=== PATIENT | female | born 2000 | race African-American/Black ===

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

== ENCOUNTER 2019-01-25 10:50 | Emergency (ER) | payer SELFPAY ==
[2019-01-25 11:14] VITALS: BP 108/61
== END 2019-01-25 13:48 | disposition left against medical advice (07) ==
LOC: ER 10:50
DX: Z53.21 Procedure and treatment not carried out due to patient leaving prior to being seen by health care provider (principal); R10.2 Pelvic and perineal pain

== ENCOUNTER 2019-03-11 09:25 | Emergency (ER) | payer SELFPAY ==
--- NOTE | 2019-03-11 10:15 | ER Document Report ---
HPI - HPI Patient complains to provider of: vaginal irritation Time Seen by Provider: 03/11/19 10:00 Onset: Last week Onset/Duration: Persistent Severity: Moderate Pain Level: 3 Context: This 18-year-old female presents emergency department with complaints of vaginal irritation and itching for the past week. She reports she thought it was a new soap she used so she quit using the soap. Symptoms still remain. She also reports vaginal discharge white. Reports no pain with void. Reports some pain with intercourse. reports she is sexually active with one partner. They do use condoms. Patient does report history of STD chlamydia patient. Denies fever vomiting diarrhea. Denies abdominal pain. - REPRODUCTIVE Reproductive: DENIES: : Past Medical History - General Information source: Patient Last Menstrual Period: february - Social History Smoking Status: Unknown if Ever Smoked Cigarette use (# per day): No Frequency of alcohol use: None Drug Abuse: None Family History: Reviewed & Not Pertinent Patient has suicidal ideation: No Patient has homicidal ideation: No Endocrine Medical History: Reports: Hx Diabetes Mellitus Type 2 Renal/ Medical History: Reports: Other - chlamydia. Denies: Hx Peritoneal Dialysis Musculoskeletal Medical History: Reports Hx Musculoskeletal Trauma Traumatic Medical History: Reports: Hx Fractures - Left third finger left tibia Past Surgical History: Reports: Hx Orthopedic Surgery - Left tibia ankle - Immunizations Immunizations up to date: Yes Hx Diphtheria, Pertussis, Tetanus Vaccination: Yes Vertical Provider Document - CONSTITUTIONAL Agree With Documented VS: Yes Exam Limitations: No Limitations General Appearance: WD/WN, No Apparent Distress - INFECTION CONTROL TRAVEL OUTSIDE OF THE [place] IN LAST 30 DAYS: No - HEENT HEENT: Atraumatic, Normocephalic - NECK Neck: Normal Inspection, Supple. negative: Lymphadenopathy-Left, Lymphadenopathy-Right - RESPIRATORY Respiratory: Breath Sounds Normal, No Respiratory Distress - CARDIOVASCULAR Cardiovascular: Regular Rate, Regular Rhythm - GI/ABDOMEN Gastrointestinal: Abdomen Soft, Abdomen Non-Tender - REPRODUCTIVE Female Genitalia: Normal Inspection. negative: Adnexal Pain-Right, Adnexal Pain-Left - BACK Back: Normal Inspection - MUSCULOSKELETAL/EXTREMETIES Musculoskeletal/Extremeties: MAEW, FROM, Non-Tender - NEURO Level of Consciousness: Awake, Alert, Appropriate Motor/Sensory: No Motor Deficit - DERM Integumentary: Warm, Dry Course - Re-evaluation Re-evalutation: 03/11/19 10:14 This 18-year-old female presents to the emergency department with complaints of vaginal irritation, itching with vaginal discharge white. Denies pain with void. reports pain with sexual intercourse. Reports history of chlamydia and yeast infections. Denies fever vomiting diarrhea. Has not tried any kwip-bpt-tiitual indications. 03/11/19 10:35 Pelvic exam completed. Patient was instructed that no obvious discharge noted no erythema no swelling. Patient reports she would still rather be treated for possible STD and yeast infection. She does not wish to wait for the results. She was instructed she can call this office or the culture nurse for results later on. She was also instructed if they were positive she needs to follow-up with the health department she needs letter partner now. She verbalized understanding to all instructions. 03/11/19 14:06 STDs negative patient was negative for yeast. 03/11/19 14:06 Urine Color YELLOW 03/11/19 10:30 Urine Appearance CLEAR 03/11/19 10:30 Urine pH 6.0 (5.0-9.0) 03/11/19 10:30 Ur Specific [place] 1.021 03/11/19 10:30 Urine Protein NEGATIVE mg/dL (NEGATIVE) 03/11/19 10:30 Urine Glucose (UA) NEGATIVE mg/dL (NEGATIVE) 03/11/19 10:30 Urine Ketones NEGATIVE mg/dL (NEGATIVE) 03/11/19 10:30 Urine Blood NEGATIVE (NEGATIVE) 03/11/19 10:30 Urine Nitrite NEGATIVE (NEGATIVE) 03/11/19 10:30 Ur Leukocyte Esterase NEGATIVE (NEGATIVE) 03/11/19 10:30 Ur Squamous Epith Cells RARE /HPF 03/11/19 10:30 - Vital Signs Vital signs: Temp Pulse Resp BP Pulse Ox 98.3 F 72 16 110/64 98 03/11/19 09:29 03/11/19 09:29 03/11/19 09:29 03/11/19 09:29 03/11/19 09:29 Procedures - Pelvic Exam Pelvic exam Time completed: 10:33 Cultures obtained: Yes Wet prep obtained: Yes Herpes culture obtained: No POC sent to lab: No Foreign body removed: No Bimanual exam performed: Yes Witnessed by: luis Discharge - Discharge Clinical Impression: Vaginal irritation, Exposure to STD Condition: Stable Disposition: HOME, SELF-CARE Instructions: Chlamydia ([facility]), Fluconazole ([facility]), Gonorrhea ([facility]), [facility], Vaginal Yeast Infection ([facility]) Additional Instructions: *You have been evaluated for vaginal discharge, STD exposure, vaginal irritation *You have been treated for gonorrhea chlamydia and a yeast infection with Rocephin and Zithromax and Diflucan You may call [phone] for results later today. If you are unable to call today you may call the culture nurse at [phone] Friday through Friday 8-4 *Follow up with your [facility]NALYST or the health department for recheck within 1 week *Avoid sexual intercourse until follow up *Return to ED for worsening condition, changes, needs
[2019-03-11] MEDS ORDERED: CEFTRIAXONE INJ 250 MG VIAL IM ONE (10:36)
[2019-03-11] MEDS ORDERED: FLUCONAZOLE 100 MG TABLET PO ONE (10:36)
[2019-03-11] MEDS ORDERED: AZITHROMYCIN 250 MG TABLET PO ONE (10:36)
[2019-03-11] MEDS ORDERED: LIDOCAINE 1% INJ-PF (10 MG/ML) 30 ML SDV INJ ONE (10:36)
[2019-03-11 10:45] VITALS: BP 107/59
[2019-03-11 10:49] LABS: T.VAGINALIS (WET MOUNT) NO TRICHOMONAS SEEN; WBCS (WET MOUNT) FEW WBCS SEEN; YEAST (WET MOUNT) NO YEAST SEEN
[2019-03-11 10:53] LABS: APPEARANCE,URINE CLEAR; BILIRUBIN,URINE NEGATIVE (NEGATIVE); COLOR,URINE YELLOW; GLUCOSE, URINE NEGATIVE (NEGATIVE); KETONES,URINE NEGATIVE (NEGATIVE); LEUKOCYTE ESTERASE,URINE NEGATIVE (NEGATIVE); NITRITE,URINE NEGATIVE (NEGATIVE); PROTEIN,URINE NEGATIVE (NEGATIVE); URINE SPECIFIC GRAVITY 1.021; UROBILINOGEN,URINE NEGATIVE mg/dL (<2.0)
[2019-03-11 10:55] LABS: ADD MANUAL MICROSCOPIC YES
[2019-03-11 11:01] LABS: WBC,URINE RARE /HPF
[2019-03-11 12:15] LABS: CHLAM PCR NOT DETECTED (NOT DETECT)
== END 2019-03-11 11:10 | disposition home or self-care (01) ==
LOC: ER 09:25
DX: R10.2 Pelvic and perineal pain (principal); Z20.2 Contact with and (suspected) exposure to infections with a predominantly sexual mode of transmission; N89.8 Other specified noninflammatory disorders of vagina; E11.9 Type 2 diabetes mellitus without complications
CPT/HCPCS: 99283; 96372; 87210; 81025; 81001; 87491; 87591; J3490; J0696

== ENCOUNTER 2019-07-06 06:59 | Emergency (ER) | payer SELFPAY ==
--- NOTE | 2019-07-06 08:48 | ER Document Report ---
ED General - General Chief Complaint: Vaginal Pain Stated Complaint: VAGINAL PAIN Time Seen by Provider: 07/06/19 08:14 Notes: 18 year old female arrives with complaints of occaisional vaginal burning and pain associated with sexual interourse. No lesions or sores on or around her vagina or change in vaginal discharge. No fever or chills. No contraception used. TRAVEL OUTSIDE OF THE [place] IN LAST 30 DAYS: No - Related Data Allergies/Adverse Reactions: No Known Allergies Allergy (Verified 07/06/19 07:33) Home Medications: Not on any control Past Medical History - Social History Smoking Status: Never Smoker Chew tobacco use (# tins/day): No Frequency of alcohol use: None Drug Abuse: None Family History: Reviewed & Not Pertinent Patient has suicidal ideation: No Patient has homicidal ideation: No Endocrine Medical History: Reports: Hx Diabetes Mellitus Type 2 Renal/ Medical History: Denies: Hx Peritoneal Dialysis Musculoskeletal Medical History: Reports Hx Musculoskeletal Trauma Traumatic Medical History: Reports: Hx Fractures - Left third finger left tibia Past Surgical History: Reports: Hx Orthopedic Surgery - Left tibia ankle - Immunizations Immunizations up to date: Yes Hx Diphtheria, Pertussis, Tetanus Vaccination: Yes Review of Systems - Review of Systems Constitutional: No symptoms reported EENT: No symptoms reported Cardiovascular: No symptoms reported Respiratory: No symptoms reported Gastrointestinal: No symptoms reported Genitourinary: See HPI. denies: No symptoms reported Female Genitourinary: No symptoms reported Musculoskeletal: No symptoms reported Skin: No symptoms reported Hematologic/Lymphatic: No symptoms reported Neurological/Psychological: No symptoms reported Physical Exam - Vital signs Vitals: Temp Pulse Resp BP Pulse Ox 97.8 F 78 14 113/62 98 07/06/19 07:21 07/06/19 07:21 07/06/19 07:21 07/06/19 07:21 07/06/19 07:21 Interpretation: Normal - General General appearance: Appears well, Alert - HEENT Head: Normocephalic, Atraumatic Eyes: Normal Pupils: PERRL - Respiratory Respiratory status: No respiratory distress Chest status: Nontender Breath sounds: Normal Chest palpation: Normal - Cardiovascular Rhythm: Regular Heart sounds: Normal auscultation Murmur: No - Abdominal Inspection: Normal Distension: No distension Bowel sounds: Normal Tenderness: Nontender Organomegaly: No organomegaly - Back Back: Normal, Nontender - Extremities General upper extremity: Normal inspection, Nontender, Normal color, Normal ROM, Normal temperature General lower extremity: Normal inspection, Nontender, Normal color, Normal ROM, Normal temperature, Normal weight bearing. No: Doron's sign - Neurological Neuro grossly intact: Yes Cognition: Normal Orientation: AAOx4 [place] Coma Scale Eye Opening: Spontaneous Humberto Coma Scale Verbal: Oriented Humberto Coma Scale Motor: Obeys Commands Humberto Coma Scale Total: 15 Speech: Normal Motor strength normal: LUE, RUE, LLE, RLE Sensory: Normal - Psychological Associated symptoms: Normal affect, Normal mood - Skin Skin Temperature: Warm Skin Moisture: Dry Skin Color: Normal Course - Re-evaluation Re-evalutation: 07/06/19 09:47 mdm otherwise healthy female with burning of vagina. No fever. Treated here previously for sti and results were negative. With no change in symptoms and 4 + bact feel treatment for vaginosis is reasonable. Will do that. Discussed using personal lubricant and she expressed understanding. - Vital Signs Vital signs: Temp Pulse Resp BP Pulse Ox 97.8 F 78 14 113/62 98 07/06/19 07:21 07/06/19 07:21 07/06/19 07:21 07/06/19 07:21 07/06/19 07:21 Discharge - Discharge Clinical Impression: Bacterial vaginitis Condition: Good Disposition: HOME, SELF-CARE Instructions: Vaginosis, Bacterial ([facility]) Additional Instructions: See your doctor or the referral doctor in follow up. Rest. Please return here for any problems or any concerns. Prescriptions: Metronidazole [Flagyl] 500 mg PO BID #14 tablet
[2019-07-06 08:52] LABS: T.VAGINALIS (WET MOUNT) NO TRICHOMONAS SEEN; YEAST (WET MOUNT) NO YEAST SEEN
[2019-07-06 08:53] LABS: BACTERIA (WET MOUNT) 4+ BACTERIA SEEN; EPITHELIALS (WET MOUNT) 4+ EPITHELIALS SEEN; WBCS (WET MOUNT) RARE WBCS SEEN
[2019-07-06 09:03] LABS: APPEARANCE,URINE SLIGHTLY-CLOUDY; BILIRUBIN,URINE NEGATIVE (NEGATIVE); COLOR,URINE YELLOW; GLUCOSE, URINE NEGATIVE (NEGATIVE); KETONES,URINE NEGATIVE (NEGATIVE); LEUKOCYTE ESTERASE,URINE NEGATIVE (NEGATIVE); NITRITE,URINE NEGATIVE (NEGATIVE); PROTEIN,URINE NEGATIVE (NEGATIVE); URINE SPECIFIC GRAVITY 1.025; UROBILINOGEN,URINE NEGATIVE mg/dL (<2.0)
[2019-07-06 10:14] VITALS: BP 118/65
[2019-07-06 15:54] LABS: CHLAM PCR DETECTED (NOT DETECT)
== END 2019-07-06 10:14 | disposition home or self-care (01) ==
LOC: ER 06:59
DX: N76.0 Acute vaginitis (principal); B96.89 Other specified bacterial agents as the cause of diseases classified elsewhere; R10.2 Pelvic and perineal pain; E11.9 Type 2 diabetes mellitus without complications
CPT/HCPCS: 81001; 81025; 87210; 87491; 87591; 99283

== ENCOUNTER 2019-08-19 06:46 | Emergency (ER) | payer SELFPAY ==
[2019-08-19 07:55] LABS: APPEARANCE,URINE SLIGHTLY-CLOUDY; BILIRUBIN,URINE NEGATIVE (NEGATIVE); COLOR,URINE YELLOW; GLUCOSE, URINE NEGATIVE (NEGATIVE); KETONES,URINE NEGATIVE (NEGATIVE); LEUKOCYTE ESTERASE,URINE NEGATIVE (NEGATIVE); NITRITE,URINE NEGATIVE (NEGATIVE); PROTEIN,URINE NEGATIVE (NEGATIVE); URINE SPECIFIC GRAVITY 1.019; UROBILINOGEN,URINE NEGATIVE mg/dL (<2.0)
--- NOTE | 2019-08-19 08:52 | ER Document Report ---
ED General - General Chief Complaint: Vaginal Discharge Stated Complaint: VAGINAL ISSUE Time Seen by Provider: 08/19/19 08:40 Notes: 19-year-old female presents with increased vaginal discharge, vaginal discomfort, and dysuria for the last 2 days. Patient states she has a new sexual partner and has been having unprotected intercourse with them. Patient denies any nausea/vomiting, fever, chills, abdominal pain, or any other complaints. Patient states she was diagnosed with bacterial vaginosis in the past however was also diagnosed with chlamydia at the same time so she is not know if this feels similar to that. TRAVEL OUTSIDE OF THE [place] IN LAST 30 DAYS: No - Related Data Allergies/Adverse Reactions: No Known Allergies Allergy (Verified 07/06/19 07:33) Past Medical History - Social History Smoking Status: Never Smoker Family History: Reviewed & Not Pertinent Patient has suicidal ideation: No Patient has homicidal ideation: No Endocrine Medical History: Reports: Hx Diabetes Mellitus Type 2 Renal/ Medical History: Denies: Hx Peritoneal Dialysis Musculoskeletal Medical History: Reports Hx Musculoskeletal Trauma Traumatic Medical History: Reports: Hx Fractures - Left third finger left tibia Past Surgical History: Reports: Hx Orthopedic Surgery - Left tibia ankle - Immunizations Immunizations up to date: Yes Hx Diphtheria, Pertussis, Tetanus Vaccination: Yes Review of Systems - Review of Systems Notes: Constitutional: Negative for fever. HENT: Negative for sore throat. Eyes: Negative for visual changes. Cardiovascular: Negative for chest pain. Respiratory: Negative for shortness of breath. Gastrointestinal: Negative for abdominal pain, vomiting or diarrhea. Genitourinary: Positive for dysuria, vaginal discharge, vaginal discomfort. Musculoskeletal: Negative for back pain. Skin: Negative for rash. Neurological: Negative for headaches, weakness or numbness. 10 point ROS negative except as marked above and in HPI. Physical Exam - Vital signs Vitals: Temp Pulse Resp BP Pulse Ox 97.8 F 94 16 115/98 H 98 08/19/19 06:56 08/19/19 06:56 08/19/19 06:56 08/19/19 06:56 08/19/19 06:56 - Notes Notes: GENERAL: Well-appearing, well-nourished and in no acute distress. HEAD: Atraumatic, normocephalic. EYES: Extraocular movements intact, sclera anicteric, conjunctiva are normal. NECK: Normal range of motion, supple without lymphadenopathy or JVD. LUNGS: Breath sounds clear to auscultation bilaterally and equal. No wheezes rales or rhonchi. HEART: Regular rate and rhythm without murmurs, rubs or gallops. ABDOMEN: Soft, nontender. No guarding, no rebound. No masses appreciated. PELVIC: White vaginal discharge. No blood. No cervical motion tenderness. No bilateral adenexal tenderness. EXTREMITIES: Normal range of motion, no pitting or edema. No clubbing or cyanosis. NEUROLOGICAL: Cranial nerves II through XII grossly intact. Normal speech, normal gait. PSYCH: Normal mood, normal affect. SKIN: Warm, Dry, normal turgor, no rashes or lesions noted. Course - Re-evaluation Re-evalutation: 08/19/19 Nontoxic, well appearing 19 y/o female presents for vaginal discharge, vaginal discomfort, and dysuria. Afebrile, nontachycardic. Abd soft, nontender. UA shows no UTI. Pelvic exam set up and pelvic cultures ordered. 08/19/19 09:27 Pelvic reveals white discharge without cervical motion or bilateral adnexal tenderness. Low suspicion for PID. Pt treated prophylactically for gonorrhea/chlamydia. 08/19/19 09:55 pelvic cultures negative. Patient given close follow-up with [facility] RO[facility] ATTENDANT. Strict return precautions given. Discussed all results with patient. Patient voices understanding and agrees with plan of care. - Vital Signs Vital signs: Temp Pulse Resp BP Pulse Ox 97.8 F 94 16 115/98 H 98 08/19/19 06:56 08/19/19 06:56 08/19/19 06:56 08/19/19 06:56 08/19/19 06:56 - Laboratory Laboratory results interpreted by me: 08/19/19 07:30 Urine Ascorbic Acid 40 H Discharge - Discharge Clinical Impression: Vaginal discharge Condition: Stable Disposition: HOME, SELF-CARE Additional Instructions: Your urine test shows no UTI. Your pelvic cultures were negative. We also t ested you for gonorrhea and chlamydia however these results will take a couple hours to come back we will call you if either is positive. You were treated for both gonorrhea and chlamydia today. Please follow-up with 1 of the women's clinics listed in 3 to 5 days. Return to ER for any worsening symptoms, including pelvic pain, abdominal pain, nausea/vomiting, fever, or any other symptoms that are concerning to you. Referrals: [facility] [Provider Group] - Follow up in 3-5 days [facility] [Provider Group] - Follow up in 3-5 days
[2019-08-19] MEDS ORDERED: AZITHROMYCIN 250 MG TABLET PO ONE (09:27)
[2019-08-19] MEDS ORDERED: CEFTRIAXONE INJ 250 MG VIAL IM ONE (09:27)
[2019-08-19] MEDS ORDERED: LIDOCAINE 1% INJ (10 MG/ML) 10 ML MDV INJ ONE (09:28)
[2019-08-19 09:41] LABS: EPITHELIALS (WET MOUNT) 3+ EPITHELIALS SEEN; RBCS (WET MOUNT) NO RBCS SEEN; T.VAGINALIS (WET MOUNT) NO TRICHOMONAS SEEN; WBCS (WET MOUNT) RARE WBCS SEEN; YEAST (WET MOUNT) NO YEAST SEEN
[2019-08-19 10:05] VITALS: BP 101/61
[2019-08-19 11:03] LABS: CHLAM PCR NOT DETECTED (NOT DETECT)
== END 2019-08-19 10:05 | disposition home or self-care (01) ==
LOC: ER 06:46
DX: N89.8 Other specified noninflammatory disorders of vagina (principal); R30.0 Dysuria; E11.9 Type 2 diabetes mellitus without complications
CPT/HCPCS: 99283; 96372; 87210; 81025; 81001; 87491; 87591; J0696

== ENCOUNTER 2019-08-21 08:02 | Emergency (ER) | payer SELFPAY ==
--- NOTE | 2019-08-21 09:47 | ER Document Report ---
ED General - General Chief Complaint: Vaginal Pain Stated Complaint: VAGINAL PAIN Time Seen by Provider: 08/21/19 09:06 Notes: 19-year-old female presents with continued vaginal discharge and vaginal irritation. Patient was seen 2 days ago and had pelvic done which did not show any yeast, gonorrhea, or chlamydia. Patient was treated for same. Patient denies any nausea/vomiting/diarrhea, abdominal pain, pelvic pain, fever. TRAVEL OUTSIDE OF THE [place] IN LAST 30 DAYS: No - Related Data Allergies/Adverse Reactions: No Known Allergies Allergy (Verified 07/06/19 07:33) Past Medical History - General Last Menstrual Period: 07/31/19 - Social History Smoking Status: Never Smoker Frequency of alcohol use: None Drug Abuse: None Family History: Reviewed & Not Pertinent Patient has suicidal ideation: No Patient has homicidal ideation: No Endocrine Medical History: Reports: Hx Diabetes Mellitus Type 2 Renal/ Medical History: Denies: Hx Peritoneal Dialysis Musculoskeletal Medical History: Reports Hx Musculoskeletal Trauma Traumatic Medical History: Reports: Hx Fractures - Left third finger left tibia Past Surgical History: Reports: Hx Orthopedic Surgery - Left tibia ankle - Immunizations Immunizations up to date: Yes Hx Diphtheria, Pertussis, Tetanus Vaccination: Yes Review of Systems - Review of Systems Notes: Constitutional: Negative for fever. HENT: Negative for sore throat. Eyes: Negative for visual changes. Cardiovascular: Negative for chest pain. Respiratory: Negative for shortness of breath. Gastrointestinal: Negative for abdominal pain, vomiting or diarrhea. Genitourinary: Positive for vaginal discharge and vaginal irritation. Negative for dysuria. Musculoskeletal: Negative for back pain. Skin: Negative for rash. Neurological: Negative for headaches, weakness or numbness. 10 point ROS negative except as marked above and in HPI. Physical Exam - Vital signs Vitals: Temp Pulse Resp BP Pulse Ox 97.7 F 76 14 109/58 L 100 08/21/19 08:05 08/21/19 08:05 08/21/19 08:05 08/21/19 08:05 08/21/19 08:05 - Notes Notes: GENERAL: Well-appearing, well-nourished and in no acute distress. HEAD: Atraumatic, normocephalic. EYES: Extraocular movements intact, sclera anicteric, conjunctiva are normal. NECK: Normal range of motion, supple without lymphadenopathy or JVD. PELVIC: Declined. EXTREMITIES: Normal range of motion, no pitting or edema. No clubbing or cyanosis. NEUROLOGICAL: Cranial nerves II through XII grossly intact. Normal speech, normal gait. PSYCH: Normal mood, normal affect. SKIN: Warm, Dry, normal turgor, no rashes or lesions noted. Course - Re-evaluation Re-evalutation: 08/21/19 nontoxic, well-appearing 19-year-old female presents for continued vaginal discharge and vaginal irritation. Patient was seen 2 days ago and had pelvic exam completed by me which revealed mild white vaginal discharge without any signs concerning for PID. Patient was treated for gonorrhea and chlamydia at that time. Review of records show that patient was negative for trichomonas, negative for yeast, negative for gonorrhea, and negative for chlamydia. Further review of records reveal that patient was seen on 07/06/2019 and diagnosed with BV. Patient was also seen on 03/11/2019 and was treated with Diflucan. Patient declines pelvic exam at this time. Patient will be treated for bacterial vaginosis with Flagyl and instructed to take Diflucan once she is finished with her course of Flagyl as well. Patient instructed if symptoms do not improve in 3 to 5 days she may repeat dose of Diflucan. Patient also given referral to [facility]. Strict return precautions given. Patient voices understanding and agrees with plan of care. - Vital Signs Vital signs: Temp Pulse Resp BP Pulse Ox 97.7 F 76 14 109/58 L 100 08/21/19 08:05 08/21/19 08:05 08/21/19 08:05 08/21/19 08:05 08/21/19 08:05 Discharge - Discharge Clinical Impression: Bacterial vaginosis, Vaginal discharge Condition: Stable Disposition: HOME, SELF-CARE Instructions: Vaginosis, Bacterial ([facility]), Vaginal Yeast Infection ([facility]) Additional Instructions: Please take Flagyl as prescribed and finish all doses even if you feel better. Please take Diflucan after you have finished Flagyl. If symptoms do not improve in 3 to 5 days after first dose of Flagyl you may repeat 1 dose. Please follow- up with [facility] of the [facility] listed in 3 to 5 days. Return to ER for any worsening symptoms, including worsening vaginal discharge, fever, abdominal pain, pelvic pain, nausea/vomiting, or any other symptoms that are concerning to you. Prescriptions: Fluconazole [Diflucan] 200 mg PO DAILY #2 tablet Metronidazole [Flagyl 500 mg Tablet] 500 mg PO BID #14 tablet Forms: Return to Work [facility]errals: [facility] [Provider Group[facility] - Follow up in 3-5 days [facility] [Provider Group] - Follow up in 3-5 days
[2019-08-21 10:00] VITALS: BP 104/70
== END 2019-08-21 10:00 | disposition home or self-care (01) ==
LOC: ER 08:02
DX: N76.0 Acute vaginitis (principal); B96.89 Other specified bacterial agents as the cause of diseases classified elsewhere; R10.2 Pelvic and perineal pain; E11.9 Type 2 diabetes mellitus without complications
CPT/HCPCS: 99283

== ENCOUNTER 2019-09-27 06:43 | Emergency (ER) | payer SELFPAY ==
[2019-09-27 07:28] LABS: APPEARANCE,URINE CLOUDY; BILIRUBIN,URINE NEGATIVE (NEGATIVE); GLUCOSE, URINE NEGATIVE (NEGATIVE); KETONES,URINE TRACE mg/dL (NEGATIVE); LEUKOCYTE ESTERASE,URINE MODERATE (NEGATIVE); NITRITE,URINE NEGATIVE (NEGATIVE); PROTEIN,URINE NEGATIVE (NEGATIVE); URINE SPECIFIC GRAVITY 1.027
[2019-09-27 07:29] LABS: COLOR,URINE YELLOW
[2019-09-27 08:05] LABS: ABSOLUTE LYMPHOCYTES (AUTO) 1.7 10^3/uL (0.5-4.7); ABSOLUTE MONOCYTES (AUTO) 0.3 10^3/uL (0.1-1.4); ABSOLUTE NEUT (AUTO) 1.5 10^3/uL (1.7-8.2); EOSINOPHILS % (AUTO) 0.9 % (0-6); HEMATOCRIT 32.5 % (36.0-47.0); HEMOGLOBIN 11.2 g/dL (12.0-15.5); LYMPHOCYTES % (AUTO) 47.3 % (13-45); MEAN CORPUSCULAR HEMOGLOBIN 31.4 pg (27.0-33.4); MEAN CORPUSCULAR HGB CONC 34.6 g/dL (32.0-36.0); MEAN CORPUSCULAR VOLUME 91 fl (80-97); MONOCYTES % (AUTO) 9.3 % (3-13); PLATELET COUNT 254 10^3/uL (150-450); RED BLOOD COUNT 3.57 10^6/uL (3.72-5.28); RED CELL DISTRIBUTION WIDTH 12.9 % (11.5-14.0); SEGMENTED NEUTROPHILS % (AUTO) 41.5 % (42-78); TOTAL CELLS COUNTED % (AUTO) 100 %; WHITE BLOOD COUNT 3.6 10^3/uL (4.0-10.5)
[2019-09-27 08:24] LABS: ALBUMIN 4.5 g/dL (3.5-5.0); ALKALINE PHOSPHATASE 61 U/L (38-126); ANION GAP 7 (5-19); ASPARTATE AMINO TRANSFERASE 23 U/L (14-36); BILIRUBIN,TOTAL 0.6 mg/dL (0.2-1.3); BLOOD UREA NITROGEN 14 mg/dL (7-20); CALCIUM 9.7 mg/dL (8.4-10.2); CARBON DIOXIDE 28 mmol/L (22-30); CHLORIDE 103 mmol/L (98-107); GLUCOSE 87 mg/dL (75-110); POTASSIUM 4.1 mmol/L (3.6-5.0); TOTAL PROTEIN 7.9 g/dL (6.3-8.2)
--- NOTE | 2019-09-27 09:46 | RADIOLOGY REPORT (SQ) ---
EXAM DESCRIPTION: KUB/ABDOMEN (SINGLE VIEW) COMPLETED DATE/TIME: 09/27/2019 9:35 am REASON FOR STUDY: CONSTIPATION, ABD PAIN COMPARISON: None. NUMBER OF VIEWS: One view. TECHNIQUE: Supine radiographic image of the abdomen acquired. LIMITATIONS: None. FINDINGS: BOWEL GAS PATTERN: No dilated loops of bowel. CALCIFICATIONS: Phleboliths on the right side of the pelvis. SOFT TISSUES: No abnormality. HARDWARE: None in the abdomen. BONES: No acute findings. OTHER: No other finding. IMPRESSION: Nonobstructive bowel gas pattern. TECHNICAL DOCUMENTATION: JOB ID: [id number] 2011 [employer]- All Rights Reserved Reading location - IP/workstation name: [email or web address]
[2019-09-27 09:51] LABS: BACTERIA (WET MOUNT) 3+ BACTERIA SEEN; EPITHELIALS (WET MOUNT) 3+ EPITHELIALS SEEN; T.VAGINALIS (WET MOUNT) NO TRICHOMONAS SEEN; WBCS (WET MOUNT) RARE WBCS SEEN; YEAST (WET MOUNT) NO YEAST SEEN
--- NOTE | 2019-09-27 10:28 | RADIOLOGY REPORT (SQ) ---
EXAM DESCRIPTION: U/S ABDOMEN LIMITED W/O DOP COMPLETED DATE/TIME: 09/27/2019 10:11 am REASON FOR STUDY: RUQ PAIN COMPARISON: None. TECHNIQUE: Dynamic and static grayscale images acquired of the abdomen and recorded on PACS. Additio nal selected color Doppler and spectral images recorded. LIMITATIONS: None. FINDINGS: PANCREAS: The visualized portions of the pancreatic head are normal. The pancreatic body and tail are obscured by overlying bowel. LIVER: Normal contour and echotexture. LIVER VASCULATURE: Hepatopetal directional flow within the portal veins. GALLBLADDER: The gallbladder wall measures 1.4 mm in thickness. There is no cholelithiasis, sludge o r pericholecystic fluid. ULTRASOUND-DETECTED CHOWDHURY'S SIGN: Negative. INTRAHEPATIC DUCTS AND COMMON DUCT: The common bile duct measures 2 mm in diameter. The intrahepatic bile ducts are normal in caliber. INFERIOR VENA CAVA: Patent. AORTA: No aneurysm. RIGHT KIDNEY: The right kidney measures 10.2 cm in length. There is no hydronephrosis. PERITONEAL AND RIGHT PLEURAL SPACE: No ascites or effusions. OTHER: No other findings. IMPRESSION: No abnormality of the right upper quadrant. TECHNICAL DOCUMENTATION: JOB ID: [id number] 2010 [employer]- All Rights Reserved Reading location - IP/workstation name: [email or web address]
[2019-09-27 10:40] LABS: CHLAM PCR NOT DETECTED (NOT DETECT)
--- NOTE | 2019-09-27 10:52 | ER Document Report ---
ED General - General Chief Complaint: Lower Abdominal Pain Stated Complaint: NAUSEA/ABDOMINAL PAIN Time Seen by Provider: 09/27/19 08:03 Mode of Arrival: Ambulatory Information source: Patient Notes: 19-year-old female presents emergency department with complaints of abdominal pain feels like she is gas. Inc. reports increased pain after eating. Reports symptoms since last week. She reports on Friday she had unprotected sex. She noted blood in her urine afterwards. She took 3 days worth of Flagyl which she had leftover when she had BV. She also reports she has not had a bowel m ovement since last week. She denies nausea denies fever vomiting or diarrhea. Reports she is having vaginal itching with green discharge. Denies pain with void. TRAVEL OUTSIDE OF THE [place] IN LAST 30 DAYS: No - HPI Onset: Last week Onset/Duration: Persistent Quality of pain: No pain Severity: None Pain Level: Denies Associated symptoms: Nausea Exacerbated by: Denies Relieved by: Denies Similar symptoms previously: Yes Recently seen / treated by doctor: No - Related Data Allergies/Adverse Reactions: No Known Allergies Allergy (Verified 07/06/19 07:33) Past Medical History - General Information source: Patient Last Menstrual Period: 09/17/2019 - Social History Smoking Status: Current Every Day Smoker Chew tobacco use (# tins/day): No Frequency of alcohol use: None Drug Abuse: None Occupation: [employer] Family History: Reviewed & Not Pertinent Patient has suicidal ideation: No Patient has homicidal ideation: No Endocrine Medical History: Reports: Hx Diabetes Mellitus Type 2 Renal/ Medical History: Denies: Hx Peritoneal Dialysis GI Medical History: Reports: Hx Irritable Bowel Musculoskeletal Medical History: Reports Hx Musculoskeletal Trauma Traumatic Medical History: Reports: Hx Fractures - Left third finger left tibia Past Surgical History: Reports: Hx Orthopedic Surgery - Left tibia ankle - Immunizations Immunizations up to date: Yes Hx Diphtheria, Pertussis, Tetanus Vaccination: Yes Review of Systems - Review of Systems Notes: Review HPI for review of systems., All other systems negative Physical Exam - Vital signs Vitals: Temp Pulse Resp BP Pulse Ox 98.0 F 70 18 106/59 L 98 09/27/19 06:49 09/27/19 06:49 09/27/19 06:49 09/27/19 06:49 09/27/19 06:49 - Notes Notes: PHYSICAL EXAMINATION: GENERAL: Well-appearing and in no acute distress HEAD: Atraumatic, normocephalic. EYES: Pupils equal round and reactive to light, extraocular movements intact, sclera anicteric, conjunctiva are normal. ENT: nares patent, oropharynx clear without exudates. Moist mucous membranes. NECK: Normal range of motion, supple without lymphadenopathy LUNGS: CTAB and equal. No wheezes rales or rhonchi. HEART: Regular rate and rhythm without murmurs ABDOMEN: Soft, no tenderness. No guarding, no rebound BACK: Denies back pain EXTREMITIES: Normal range of motion, no pitting edema. No cyanosis. NEUROLOGICAL: Cranial nerves grossly intact. Normal sensory/motor exams. PSYCH: Normal mood, normal affect. SKIN: Warm, Dry, normal turgor, no rashes or lesions noted - Genitourinary External exam: Normal Speculum exam: Vaginal discharge Vaginal bleeding: None Bimanuel exam: Normal Course - Re-evaluation Re-evalutation: 09/27/19 10:47 19 year old female presents with c/o abd pain, gas, bloating, vaginal discharge. Labs unremarkable, UA with leukocytes, bacteria some WBCs. STD cultures negative wet mount negative. KUB and ultrasound negative for obstruction or cholelithiasis. Patient was instructed on treatment for UTI with Macrobid. She was instructed on negative cultures negative BV. Patient was instructed on stool softener. She was instructed on the importance of follow-up with her primary care provider within the week for recheck. She verbalized understanding to all instructions discharged home KUB X-Ray 09/27/19 08:54 IMPRESSION: Nonobstructive bowel gas pattern. Abdomen Ultrasound 09/27/19 08:55 IMPRESSION: No abnormality of the right upper quadrant. 09/27/19 11:30 Microbiology 09/27/19 09:23 Gram Stain - Final Vaginal Laboratory 09/27/19 09/27/19 09/27/19 06:55 07:49 07:49 WBC 3.6 L RBC 3.57 L Hgb 11.2 L Hct 32.5 L MCV 91 MCH 31.4 MCHC 34.6 RDW 12.9 Plt Count 254 Lymph % (Auto) 47.3 H Wilkinson % (Auto) 9.3 Eos % (Auto) 0.9 Baso % (Auto) 1.0 Absolute Neuts (auto) 1.5 L Absolute Lymphs (auto) 1.7 Absolute Monos (auto) 0.3 Absolute Eos (auto) 0.0 Absolute Basos (auto) 0.0 Seg Neutrophils % 41.5 L Sodium 138.4 Potassium 4.1 Chloride 103 Carbon Dioxide 28 Anion Gap 7 BUN 14 Creatinine 0.64 Est GFR ( Amer) > 60 Est GFR (MDRD) Non-Af > 60 Glucose 87 Calcium 9.7 Total Bilirubin 0.6 Direct Bilirubin 0.0 Neonat Total Bilirubin Not Reportable Neonat Direct Bilirubin Not Reportable Neonat Indirect Bili Not Reportable AST 23 ALT 9 Alkaline Phosphatase 61 Total Protein 7.9 Albumin 4.5 Lipase 73.3 Urine Color YELLOW Urine Appearance CLOUDY Urine pH 5.0 Ur Specific [place] 1.027 Urine Protein NEGATIVE Urine Glucose (UA) NEGATIVE Urine Ketones TRACE H Urine Blood NEGATIVE Urine Nitrite NEGATIVE Urine Bilirubin NEGATIVE Urine Urobilinogen 2.0 H Ur Leukocyte Esterase MODERATE H Urine WBC (Auto) 7 Urine RBC (Auto) 3 Urine Bacteria (Auto) 1+ Squamous Epi Cells Auto 38 Urine Mucus (Auto) MANY Urine Ascorbic Acid 40 H Urine HCG, Qual NEGATIVE Epi Cells (Wet Prep) Bacteria (Wet Prep) Trichomonas (Wet Prep) Vaginal WBC Vaginal Yeast Chlamydia DNA (PCR) N.gonorrhoeae DNA (PCR) 09/27/19 09/27/19 08:52 09:23 WBC RBC Hgb Hct MCV MCH MCHC RDW Plt Count Lymph % (Auto) Wilkinson % (Auto) Eos % (Auto) Baso % (Auto) Absolute Neuts (auto) Absolute Lymphs (auto) Absolute Monos (auto) Absolute Eos (auto) Absolute Basos (auto) Seg Neutrophils % Sodium Potassium Chloride Carbon Dioxide Anion Gap BUN Creatinine Est GFR ( Amer) Est GFR (MDRD) Non-Af Glucose Calcium Total Bilirubin Direct Bilirubin Neonat Total Bilirubin Neonat Direct Bilirubin Neonat Indirect Bili AST ALT Alkaline Phosphatase Total Protein Albumin Lipase Urine Color Urine Appearance Urine pH Ur Specific [place] Urine Protein Urine Glucose (UA) Urine Ketones Urine Blood Urine Nitrite Urine Bilirubin Urine Urobilinogen Ur Leukocyte Esterase Urine WBC (Auto) Urine RBC (Auto) Urine Bacteria (Auto) Squamous Epi Cells Auto Urine Mucus (Auto) Urine Ascorbic Acid Urine HCG, Qual Epi Cells (Wet Prep) 3+ EPITHELIALS SEEN Bacteria (Wet Prep) 3+ BACTERIA SEEN Trichomonas (Wet Prep) NO TRICHOMONAS SEEN Vaginal WBC RARE WBCS SEEN Vaginal Yeast NO YEAST SEEN Chlamydia DNA (PCR) NOT DETECTED N.gonorrhoeae DNA (PCR) NOT DETECTED 09/27/19 14:27 - Vital Signs Vital signs: Temp Pulse Resp BP Pulse Ox 98.9 F 68 16 95/45 L 100 09/27/19 11:40 09/27/19 11:40 09/27/19 11:40 09/27/19 11:40 09/27/19 11:40 - Laboratory Result Diagrams: 09/27/19 07:49 09/27/19 07:49 Laboratory results interpreted by me: 09/27/19 09/27/19 06:55 07:49 WBC 3.6 L RBC 3.57 L Hgb 11.2 L Hct 32.5 L Lymph % (Auto) 47.3 H Absolute Neuts (auto) 1.5 L Seg Neutrophils % 41.5 L Urine Ketones TRACE H Urine Urobilinogen 2.0 H Ur Leukocyte Esterase MODERATE H Urine Ascorbic Acid 40 H - Diagnostic Test Radiology reviewed: Reports reviewed Procedures - Pelvic Exam Pelvic exam Cultures obtained: Yes - URINE Wet prep obtained: Yes Herpes culture obtained: No POC sent to lab: No Foreign body removed: No Bimanual exam performed: Yes Witnessed by: ELDER GARCIAcarpenter inspector - Discharge Clinical Impression: Vaginal discharge Abdominal pain Qualifiers: Abdominal location: generalized Qualified Code(s): R10.84 - Generalized abdominal pain UTI (urinary tract infection) Qualifiers: Urinary tract infection type: site unspecified Hematuria presence: without hematuria Qualified Code(s): N39.0 - Urinary tract infection, site not specified Condition: Stable Disposition: HOME, SELF-CARE Instructions: Nitrofurantoin ([facility]), Urinary Tract Infection ([facility]) Additional Instructions: *You have been evaluated for abdominal pain, vaginal discharge, UTI *Your STD cultures were negative for gonorrhea and chlamydia. *Your vaginal culture was negative for bacterial vaginosis *Take medication as prescribed for your UTI *Take [id number] stool softener as indicated *Follow up with a primary care provider within 1 week for recheck *Return to ED for worsening condition, changes, needs Prescriptions: Nitrofurantoin Monohyd/M-Cryst [Macrobid 100 mg Capsule] 100 mg PO BID #20 cap Forms: Return to Work
[2019-09-27 11:41] VITALS: BP 95/45
== END 2019-09-27 11:41 | disposition home or self-care (01) ==
LOC: ER 06:43
DX: N39.0 Urinary tract infection, site not specified (principal); R10.84 Generalized abdominal pain; R19.4 Change in bowel habit; N89.8 Other specified noninflammatory disorders of vagina; L29.9 Pruritus, unspecified; R11.0 Nausea; E11.9 Type 2 diabetes mellitus without complications; R14.0 Abdominal distension (gaseous); R14.3 Flatulence; F17.200 Nicotine dependence, unspecified, uncomplicated
CPT/HCPCS: 36415; 74018; 76705; 80053; 81001; 81025; 83690; 85025; 87205; 87210; 87491; 87591; 99284

== ENCOUNTER 2019-12-23 06:13 | Emergency (ER) | payer SELFPAY ==
[2019-12-23 06:21] VITALS: BP 121/74
--- NOTE | 2019-12-23 08:36 | ER Document Report ---
ED Skin Rash/Insect Bite/Abscs - General Chief Complaint: Skin Problem Stated Complaint: VAGINAL PAIN Time Seen by Provider: 12/23/19 08:15 Primary Care Provider: MARCELO DAVISON MD [ACTIVE STAFF] - Follow up in 3-5 days (call for an appointment) Mode of Arrival: Ambulatory Information source: Patient Notes: 19-year-old female with no previous medical problems presents emergency room concerned lesions that she noticed in the vaginal area yesterday. States they are not painful. No history of previous lesions. Does shave but states she has not shaved in several weeks. She denies any vaginal discharge, no vaginal bleeding, no sexual activity in the past 5 months. Recently traveled from [place] 4 days ago, denies any COVID-19 exposure, denies any COVID-19 s ymptoms. TRAVEL OUTSIDE OF THE [place] IN LAST 30 DAYS: No - Related Data Allergies/Adverse Reactions: No Known Allergies Allergy (Verified 07/06/19 07:33) Past Medical History - General Information source: Patient Last Menstrual Period: 12/19/19 - Social History Smoking Status: Current Every Day Smoker Chew tobacco use (# tins/day): No Drug Abuse: None Family History: Reviewed & Not Pertinent Patient has homicidal ideation: No Endocrine Medical History: Reports: Hx Diabetes Mellitus Type 2 Renal/ Medical History: Denies: Hx Peritoneal Dialysis GI Medical History: Reports: Hx Irritable Bowel Musculoskeletal Medical History: Reports Hx Musculoskeletal Trauma Traumatic Medical History: Reports: Hx Fractures - Left third finger left tibia Past Surgical History: Reports: Hx Orthopedic Surgery - Left tibia ankle - Immunizations Immunizations up to date: Yes Hx Diphtheria, Pertussis, Tetanus Vaccination: Yes Review of Systems - Review of Systems Constitutional: No symptoms reported Cardiovascular: No symptoms reported Respiratory: No symptoms reported Gastrointestinal: No symptoms reported Genitourinary: No symptoms reported Female Genitourinary: Other - Vaginal lesions. denies: Vaginal discharge, Vaginal bleeding Skin: Other - Vaginal lesions Neurological/Psychological: No symptoms reported -: Yes All other systems reviewed and negative Physical Exam - Vital signs Vitals: Temp 98.6 F 12/23/19 06:14 - General General appearance: Appears well, Alert In distress: Mild - Respiratory Respiratory status: No respiratory distress Chest status: Nontender Breath sounds: Normal Chest palpation: Normal - Cardiovascular Rhythm: Regular Heart sounds: Normal auscultation Murmur: No - Abdominal Inspection: Normal Distension: No distension Bowel sounds: Normal Tenderness: Nontender Organomegaly: No organomegaly - Genitourinary External exam: Lesions - Small lesion noted inside the left side of labia. Nontender, no discharge or draining noted. Consistent with genital warts Notes: Shear Setter JOSE Marie present during exam. - Neurological Neuro grossly intact: Yes Cognition: Normal Orientation: AAOx4 [place] Coma Scale Eye Opening: Spontaneous [place] Coma Scale Verbal: Oriented [place]umber[place] Coma Scale Motor: Obeys Commands H[place] Coma Scale Total: 15 Speech: Normal Motor strength normal: LUE, RUE, LLE, RLE Sensory: Normal - Skin Skin Temperature: Warm Skin Moisture: Dry Skin Color: Normal Skin irregularity: Lesion Location of irregularity: Other - vagina Irregularity with: negative: Swelling, Tenderness, Warmth Course - Re-evaluation Re-evalutation: 12/23/19 08:32 Counseled patient that lesions do not look infectious, not consistent with herpes, discussed with patient possible for genital warts. Recommend out patient follow up with block out machine operator for further evaluation and treatment. Given strict return to the emergency room guidelines. Return for any new or worsening symptoms. All questions were answered. patient verbalizes understanding and agrees with plan of care. 12/23/19 09:27 - Vital Signs Vital signs: Temp Pulse Resp BP Pulse Ox 98.6 F 82 16 121/74 99 12/23/19 06:18 12/23/19 06:18 12/23/19 06:18 12/23/19 06:18 12/23/19 06:18 Discharge - Discharge Clinical Impression: Vaginal lesion, Genital warts Condition: Stable Disposition: HOME, SELF-CARE Instructions: Genital Warts ([facility]) Additional Instructions: Outpatient follow up with block out machine operator as discussed. Return for any new or worsening symptoms. Referrals: MARCELO DAVISON MD [ACTIVE STAFF] - Follow up in 3-5 days (call for an carlos ointment)
== END 2019-12-23 08:58 | disposition home or self-care (01) ==
LOC: ER 06:13
DX: B07.9 Viral wart, unspecified (principal); N89.8 Other specified noninflammatory disorders of vagina; F17.200 Nicotine dependence, unspecified, uncomplicated; E11.9 Type 2 diabetes mellitus without complications
CPT/HCPCS: 99283

== ENCOUNTER 2020-01-31 17:26 | Emergency (ER) | payer SELFPAY ==
--- NOTE | 2020-01-31 18:22 | ER Document Report ---
ED Medical Screen (RME) - General Chief Complaint: Abdominal Pain Stated Complaint: VAGINAL PAIN Time Seen by Provider: 01/31/20 18:20 Information source: Patient Notes: Patient presents complaining of vaginal discharge and abdominal pain for the past 5 days. Patient states she has lower pelvic pain as well as upper abdominal pain. Patient denies any fever, nausea, vomiting or diarrhea. Patient denies any concerns about STI. I have greeted and performed a rapid initial assessment of this patient. A comprehensive ED assessment and evaluation of the patient, analysis of test results and completion of the medical decision making process will be conducted by additional ED providers. TRAVEL OUTSIDE OF THE [place] IN LAST 30 DAYS: No - Related Data Allergies/Adverse Reactions: No Known Allergies Allergy (Verified 07/06/19 07:33) Past Medical History - Social History Chew tobacco use (# tins/day): No Frequency of alcohol use: None Drug Abuse: None Endocrine Medical History: Reports: Hx Diabetes Mellitus Type 2 Renal/ Medical History: Denies: Hx Peritoneal Dialysis GI Medical History: Reports: Hx Irritable Bowel Musculoskeltal Medical History: Reports Hx Musculoskeletal Trauma Traumatic Medical History: Reports: Hx Fractures - Left third finger left tibia Past Surgical History: Reports: Hx Orthopedic Surgery - Left tibia ankle - Immunizations Immunizations up to date: Yes Hx Diphtheria, Pertussis, Tetanus Vaccination: Yes Physical Exam - Vital signs Vitals: Temp Pulse Resp BP Pulse Ox 99.1 F 77 12 124/66 98 01/31/20 17:36 01/31/20 17:36 01/31/20 17:36 01/31/20 17:36 01/31/20 17:36 - Abdominal Tenderness: Tender - Lower pelvic tenderness, epigastric tenderness Course - Vital Signs Vital signs: Temp Pulse Resp BP Pulse Ox 99.1 F 77 12 124/66 98 01/31/20 18:19 01/31/20 17:36 01/31/20 17:36 01/31/20 17:36 01/31/20 17:36
[2020-01-31] MEDS ORDERED: IBUPROFEN 800 MG TABLET PO ONE (20:19)
[2020-01-31 20:43] LABS: APPEARANCE,URINE CLEAR; BILIRUBIN,URINE NEGATIVE (NEGATIVE); COLOR,URINE STRAW; GLUCOSE, URINE NEGATIVE (NEGATIVE); KETONES,URINE NEGATIVE (NEGATIVE); LEUKOCYTE ESTERASE,URINE NEGATIVE (NEGATIVE); NITRITE,URINE NEGATIVE (NEGATIVE); PROTEIN,URINE NEGATIVE (NEGATIVE); URINE SPECIFIC GRAVITY 1.004; UROBILINOGEN,URINE NEGATIVE mg/dL (<2.0)
[2020-01-31 20:52] LABS: ALBUMIN 4.9 g/dL (3.5-5.0); ALKALINE PHOSPHATASE 58 U/L (38-126); ANION GAP 8 (5-19); ASPARTATE AMINO TRANSFERASE 22 U/L (14-36); BILIRUBIN,TOTAL 0.4 mg/dL (0.2-1.3); BLOOD UREA NITROGEN 10 mg/dL (7-20); CALCIUM 9.8 mg/dL (8.4-10.2); CARBON DIOXIDE 27 mmol/L (22-30); CHLORIDE 104 mmol/L (98-107); GLUCOSE 95 mg/dL (75-110); POTASSIUM 4.1 mmol/L (3.6-5.0); TOTAL PROTEIN 8.4 g/dL (6.3-8.2)
[2020-01-31 20:59] LABS: BACTERIA (WET MOUNT) 4+ BACTERIA SEEN; EPITHELIALS (WET MOUNT) 3+ EPITHELIALS SEEN; RBCS (WET MOUNT) FEW RBCS SEEN; T.VAGINALIS (WET MOUNT) NO TRICHOMONAS SEEN; WBCS (WET MOUNT) 3+ WBCS SEEN; YEAST (WET MOUNT) NO YEAST SEEN
[2020-01-31 22:26] LABS: CHLAM PCR DETECTED (NOT DETECT)
[2020-01-31] MEDS ORDERED: AZITHROMYCIN 250 MG TABLET PO ONE (23:26)
--- NOTE | 2020-01-31 23:34 | ER Document Report ---
ED GI/ - General Chief Complaint: Abdominal Pain Stated Complaint: VAGINAL PAIN Time Seen by Provider: 01/31/20 18:20 Primary Care Provider: [facility] [Provider Group] - Follow up as needed [facility] [Provider Group] - Follow up as needed [facility] [Provider Group] - Follow up as needed Mode of Arrival: Ambulatory Information source: Patient Notes: 19-year-old female presented to ED for complaint of intermittent upper abdominal pain for the last 5 days. States she is also had a vaginal discharge that is making her uncomfortable. She denies any fever nausea vomiting or diarrhea. She is alert oriented respirations regular nonlabored speaking in full sentences. She states her last menstrual period was January 15. She was seen in triage blood urine pelvic swabs were completed. She is positive for chlamydia. She states she is not having any pain in the upper abdomen at this time but that comes and goes. Did discuss this with Dr. oliveira. The CBC machine is down at the time and has been down for a while and unsure when it will come back up. I have talked with Dr. Boogie who stated that since we know she has chlamydia she is not having any fevers does not have any abdominal pain this time that is okay to treated for the chlamydia and let her go home. TRAVEL OUTSIDE OF THE [place] IN LAST 30 DAYS: No - HPI Patient complains to provider of: Abdominal pain - Intermittent, Vaginal discharge Onset: Other - Days Timing/Duration: Intermittent Quality of pain: Other - Feels like gassy pains in the upper abdomen Severity at maximum: Mild Severity in ED: None Pain Level: Denies Location: Epigastric Vaginal bleeding (Compared to normal period): None LMP: January 16, 2020 Sexual history: Unprotected intercourse Associated symptoms: Vaginal discharge. denies: Nausea, Vomiting Exacerbated by: Denies Relieved by: Denies Similar symptoms previously: No Recently seen / treated by doctor: No - Related Data Allergies/Adverse Reactions: No Known Allergies Allergy (Verified 07/06/19 07:33) Past Medical History - General Information source: Patient - Social History Smoking Status: Never Smoker Chew tobacco use (# tins/day): No Frequency of alcohol use: None Drug Abuse: None Lives with: Spouse/Significant other Family History: Reviewed & Not Pertinent Patient has suicidal ideation: No Patient has homicidal ideation: No - Past Medical History Cardiac Medical History: Reports: None Pulmonary Medical History: Reports: None EENT Medical History: Reports: None Neurological Medical History: Reports: None Endocrine Medical History: Reports: Hx Diabetes Mellitus Type 2 Renal/ Medical History: Reports: None Malignancy Medical History: Reports: None GI Medical History: Reports: Hx Irritable Bowel Musculoskeletal Medical History: Reports Hx Musculoskeletal Trauma Skin Medical History: Reports None Psychiatric Medical History: Reports: None Traumatic Medical History: Reports: Hx Fractures - Left third finger left tibia Infectious Medical History: Reports: None Past Surgical History: Reports: Hx Orthopedic Surgery - Left tibia ankle - Immunizations Immunizations up to date: Yes Hx Diphtheria, Pertussis, Tetanus Vaccination: Yes Review of Systems - Review of Systems Constitutional: No symptoms reported EENT: No symptoms reported Cardiovascular: No symptoms reported Respiratory: No symptoms reported Gastrointestinal: No symptoms reported Genitourinary: No symptoms reported Female Genitourinary: No symptoms reported Musculoskeletal: No symptoms reported Skin: No symptoms reported Hematologic/Lymphatic: No symptoms reported Neurological/Psychological: No symptoms reported -: Yes All other systems reviewed and negative Physical Exam - Vital signs Vitals: Temp Pulse Resp BP Pulse Ox 99.1 F 77 12 124/66 98 01/31/20 17:36 01/31/20 17:36 01/31/20 17:36 01/31/20 17:36 01/31/20 17:36 Interpretation: Normal - General General appearance: Appears well, Alert - HEENT Head: Normocephalic, Atraumatic Eyes: Normal Pupils: PERRL - Respiratory Respiratory status: No respiratory distress Chest status: Nontender Breath sounds: Normal Chest palpation: Normal - Cardiovascular Rhythm: Regular Heart sounds: Normal auscultation Murmur: No - Abdominal Inspection: Normal Distension: No distension Bowel sounds: Normal Tenderness: Nontender Organomegaly: No organomegaly - Back Back: Normal, Nontender - Extremities General upper extremity: Normal inspection, Nontender, Normal color, Normal ROM, Normal temperature General lower extremity: Normal inspection, Nontender, Normal color, Normal ROM, Normal temperature, Normal weight bearing. No: Doron's sign - Neurological Neuro grossly intact: Yes Cognition: Normal Orientation: AAOx4 Humberto Coma Scale Eye Opening: Spontaneous [place] Coma Scale Verbal: Oriented Humberto Coma Scale Motor: Obeys Commands Humberto Coma Scale Total: 15 Speech: Normal Motor strength normal: LUE, RUE, LLE, RLE Sensory: Normal - Psychological Associated symptoms: Normal affect, Normal mood - Skin Skin Temperature: Warm Skin Moisture: Dry Skin Color: Normal Course - Re-evaluation Re-evalutation: 01/31/20 23:42 Patient was treated with a azithromycin 1 g she was given instructions to please abstain from sexual intercourse until she and her partner been treated for 7 to 10 days and to please be retested before resuming sexual intercourse. She verbalized understanding and agreement treatment plan patient was discharged home. - Vital Signs Vital signs: Temp Pulse Resp BP Pulse Ox 98.5 F 69 16 118/67 100 01/31/20 23:27 01/31/20 23:27 01/31/20 23:27 01/31/20 23:27 01/31/20 23:27 - Laboratory Result Diagrams: 01/31/20 20:15 01/31/20 20:15 Laboratory results interpreted by me: 01/31/20 01/31/20 20:15 20:15 Total Protein 8.4 H Chlamydia DNA (PCR) DETECTED H Discharge - Discharge Clinical Impression: Chlamydia Condition: Stable Disposition: HOME, SELF-CARE Additional Instructions: Abdominal Pain There are many causes of abdominal pain. Pain can mean a serious problem requiring surgery (such as appendicitis). It can also be an innocent problem that goes away on its own (such as a viral infection). Often, time must pass to determine the cause of pain. The physician does not feel that hospitalization is necessary, at present. Things may change within the next 24 hours. Call the doctor or come back for re- examination if any problems occur, such as: (1) Pain that becomes more severe, steady, or becomes concentrated in one specific area. Also, pain that is more severe with movement or coughing. (2) Vomiting that persists or becomes more frequent. (3) Blood in the vomitus, urine, or bowel movements. Blood in the stool may have a tarry or black appearance. (4) Shaking chills or fever greater than 100 degrees F. (5) The abdomen becomes more distended or swollen. (6) Bowel movements cease. (7) Failure to improve as expected. Chlamydia You have a chlamydia infection. Chlamydia is a germ that grows inside the cells of the mucous membranes. It often infects the eyes, urethra, and fallopian tubes. It can cause chronic pain and scar tissue if untreated. Antibiotics are used to treat chlamydia. It's important to take all the medicine even if there are no symptoms. Use condoms to prevent spread of the infection. Because this infection can spread by sexual contact, it's important that your sexual partner be checked before resuming sexual relations. A positive t est for chlamydia has to be reported to the health department. Call the doctor or return at once if you develop increasing fever, rash, severe pelvic pain, vaginal bleeding (other than your period), or problems with your bladder or bowels. AZITHROMYCIN: Azithromycin (Zithromax) is a broad spectrum antibiotic in the same class as erythromycin. It can treat a variety of bacterial infections, but is most frequently used for respiratory infections. Azithromycin is extremely long-lasting. It accumulates in body tissues and continues to kill bacteria for many days. In order to improve absorption, Azithromycin should be taken at least one hour before or two hours after a meal. It does not have the same strong tendency to upset the stomach as erythromycin and is usually very well tolerated. Patients who have had a rash or other true allergic reactions to erythromycin should not take this medication. Call if you develop gastrointestinal distress, severe diarrhea, rash, hives, itching, or shortness of breath. FOLLOW-UP CARE: If you have been referred to a physician for follow-up care, call the physicians office for an appointment as you were instructed or within the next two days. If you experience worsening or a significant change in your symptoms, notify the physician immediately or return to the Emergency Department at any time for re-evaluation. Forms: Return to Work Referrals: [facility] [Provider Group] - Follow up as needed [facility] [Provider Group] - Follow up as needed [facility] [Provider Group] - Follow up as needed
[2020-01-31 23:38] VITALS: BP 118/67
[2020-01-31 23:56] LABS: ABSOLUTE MONOCYTES (AUTO) 0.3 10^3/uL (0.1-1.4); ABSOLUTE NEUT (AUTO) 2.6 10^3/uL (1.7-8.2); BASOPHILS % (AUTO) 0.5 % (0-2); EOSINOPHILS % (AUTO) 0.3 % (0-6); HEMATOCRIT 36.8 % (36.0-47.0); HEMOGLOBIN 12.4 g/dL (12.0-15.5); LYMPHOCYTES % (AUTO) 40.7 % (13-45); MEAN CORPUSCULAR HEMOGLOBIN 31.2 pg (27.0-33.4); MEAN CORPUSCULAR HGB CONC 33.7 g/dL (32.0-36.0); MEAN CORPUSCULAR VOLUME 93 fl (80-97); MONOCYTES % (AUTO) 6.4 % (3-13); PLATELET COUNT 263 10^3/uL (150-450); RED BLOOD COUNT 3.98 10^6/uL (3.72-5.28); SEGMENTED NEUTROPHILS % (AUTO) 52.1 % (42-78); TOTAL CELLS COUNTED % (AUTO) 100 %
== END 2020-01-31 23:37 | disposition home or self-care (01) ==
LOC: ER 17:26
DX: A56.2 Chlamydial infection of genitourinary tract, unspecified (principal); R10.13 Epigastric pain; N89.8 Other specified noninflammatory disorders of vagina; E11.9 Type 2 diabetes mellitus without complications
CPT/HCPCS: 36415; 80053; 81001; 83690; 84703; 85025; 87210; 87491; 87591; 99284

== ENCOUNTER 2020-02-23 08:32 | Emergency (ER) | payer SELFPAY ==
--- NOTE | 2020-02-23 10:07 | ER Document Report ---
ED GI/ - General Chief Complaint: Diarrhea Stated Complaint: DIARRHEA Time Seen by Provider: 02/23/20 09:36 Information source: Patient Notes: HPI: Patient is a 19-year-old female that presents today stating that she has had some left lower quadrant intermittent pain for a month. She states she was here 1 month ago and had a positive chlamydia and was treated for STD infections. She has not had sex since that time. She denies any vaginal discharge, vaginal bleeding, missed menstrual periods, radiation of the pain, aggravating relieving factors, or fevers. Patient states she was feeling a little constipated and did take a laxative with 2 bouts of nonbloody diarrhea. ROS: See HPI All other review of systems reviewed and otherwise negative Reviewed vital signs and nursing note as charted by RN. PHYSICAL EXAM: CONSTITUTIONAL: Alert and oriented and responds appropriately to questions. Well-appearing; well-nourished HEAD: Normocephalic; atraumatic EYES: Sclerae non-icteric ENT: Normal nose; no rhinorrhea; moist mucous membranes; pharynx without lesions noted NECK: Supple without meningismus; non-tender; no cervical lymphadenopathy, no masses CARD: Regular rate and rhythm; no murmurs; symmetric distal pulses RESP: Normal chest excursion without splinting or tachypnea; breath sounds clear and equal bilaterally ABD/GI: Normal bowel sounds; non-distended; soft, very minimally tender to the left lower quadrant without rebound or guarding BACK: The back appears normal and is non-tender to palpation EXT: Normal ROM in all joints; non-tender to palpation; no edema SKIN: No acute lesions noted NEURO: CN 2-12 intact; 5/5 bilateral upper and lower extremity strength with sensation intact to light touch PSYCH: The patient's mood and manner are appropriate. Grooming and personal hy giene are appropriate. TRAVEL OUTSIDE OF THE [place] IN LAST 30 DAYS: No - Related Data Allergies/Adverse Reactions: No Known Allergies Allergy (Verified 02/23/20 10:27) Past Medical History - Social History Smoking Status: Former Smoker Frequency of alcohol use: None Drug Abuse: None Family History: Reviewed & Not Pertinent Patient has homicidal ideation: No Endocrine Medical History: Reports: Hx Diabetes Mellitus Type 2 Renal/ Medical History: Denies: Hx Peritoneal Dialysis GI Medical History: Reports: Hx Irritable Bowel Musculoskeletal Medical History: Reports Hx Musculoskeletal Trauma Traumatic Medical History: Reports: Hx Fractures - Left third finger left tibia Past Surgical History: Reports: Hx Orthopedic Surgery - Left tibia ankle - Immunizations Immunizations up to date: Yes Hx Diphtheria, Pertussis, Tetanus Vaccination: Yes Physical Exam - Vital signs Vitals: Temp Pulse Resp BP Pulse Ox 98.5 F 67 16 109/72 100 02/23/20 09:28 02/23/20 09:28 02/23/20 09:28 02/23/20 09:28 02/23/20 09:28 Course - Re-evaluation Re-evalutation: 02/23/20 10:07 Given the above history and physical with only 2 bouts of diarrhea after laxative, vital signs as recorded with no tachycardia, I do not believe any laboratory values are necessary other than a urine test and urine analysis. I will perform a transvaginal ultrasound to evaluate for the possibility of left ovarian pathology or tubo-ovarian abscess. I do believe torsion to be unlikely. 02/23/20 13:37 Patient is not . Chlamydia gonorrhea are negative. Ultrasound as recorded. Given the above history and physical examination, with a repeat exam showing no tenderness currently, vital signs stable, patient will be discharged home with strict return precautions and follow-up with the primary care physician. Patient is very comfortable with this plan. I will also provide [facility] referral. - Vital Signs Vital signs: Temp Pulse Resp BP Pulse Ox 98.5 F 67 16 109/72 100 02/23/20 09:32 02/23/20 09:28 02/23/20 09:28 02/23/20 09:28 02/23/20 09:28 Discharge - Discharge Clinical Impression: Left lower quadrant abdominal pain Condition: Good Disposition: HOME, SELF-CARE Additional Instructions: Come back immediately for any increased pain, change in location or quality of pain, fevers or vomiting, or any other acute problems. Please follow-up with the primary care physician and [facility] for reassessment as discussed. Referrals: DANIEL FRAGOSO MD [ACTIVE STAFF] - Follow up as needed
[2020-02-23 10:20] LABS: APPEARANCE,URINE CLOUDY; BILIRUBIN,URINE NEGATIVE (NEGATIVE); COLOR,URINE YELLOW; GLUCOSE, URINE NEGATIVE (NEGATIVE); KETONES,URINE NEGATIVE (NEGATIVE); LEUKOCYTE ESTERASE,URINE NEGATIVE (NEGATIVE); NITRITE,URINE NEGATIVE (NEGATIVE); PROTEIN,URINE NEGATIVE (NEGATIVE); URINE SPECIFIC GRAVITY 1.018; UROBILINOGEN,URINE NEGATIVE mg/dL (<2.0)
[2020-02-23 12:17] LABS: CHLAM PCR NOT DETECTED (NOT DETECT)
--- NOTE | 2020-02-23 13:01 | RADIOLOGY REPORT (SQ) ---
EXAM DESCRIPTION: U/S NON-OB PELVIS W/O DOP IMAGES COMPLETED DATE/TIME: 02/23/2020 12:29 pm REASON FOR STUDY: 31; llq abdominal pain with previous std COMPARISON: None. TECHNIQUE: Dynamic and static grayscale images acquired of the pelvis via transabdominal approach an d recorded on PACS. Additional selected color Doppler and spectral images recorded. LIMITATIONS: None. FINDINGS: UTERUS: Contour normal. No mass. ENDOMETRIAL STRIPE: No focal or generalized thickening. No masses. CERVIX: No nabothian cysts. RIGHT OVARY AND DOPPLER: Normal size. No worrisome masses. Normal arterial vascular flow without evid ence for torsion. LEFT OVARY AND DOPPLER: Normal size. No worrisome masses. Normal arterial vascular flow without evide nce for torsion. FREE FLUID: Minimal free fluid the posterior cul-de-sac most likely physiologic. OTHER: No other significant finding. MEASUREMENTS: UTERUS: 8.5 x 4.9 x 4.1 cm. ENDOMETRIAL STRIPE: 6.0 mm. RIGHT OVARY: 3.5 x 2.5 x 1.9 cm. LEFT OVARY: 3.5 x 2.9 x 2.4 cm. IMPRESSION: Trace amount of free fluid in the cul de sac otherwise negative transabdominal pelvic ul trasound. TECHNICAL DOCUMENTATION: JOB ID: [id number] 2010 [employer]- All Rights Reserved Reading location - IP/workstation name: [email or web address]
[2020-02-23 13:48] VITALS: BP 97/62
== END 2020-02-23 13:49 | disposition home or self-care (01) ==
LOC: ER 08:32
DX: R10.32 Left lower quadrant pain (principal); R19.7 Diarrhea, unspecified; Z87.891 Personal history of nicotine dependence; E11.9 Type 2 diabetes mellitus without complications
CPT/HCPCS: 76856; 81001; 81025; 87491; 87591; 99284

== ENCOUNTER 2020-06-18 07:47 | Emergency (ER) | payer SELFPAY ==
[2020-06-18 08:47] LABS: APPEARANCE,URINE CLOUDY; BILIRUBIN,URINE NEGATIVE (NEGATIVE); COLOR,URINE YELLOW; GLUCOSE, URINE NEGATIVE (NEGATIVE); KETONES,URINE NEGATIVE (NEGATIVE); LEUKOCYTE ESTERASE,URINE MODERATE (NEGATIVE); NITRITE,URINE NEGATIVE (NEGATIVE); PROTEIN,URINE NEGATIVE (NEGATIVE); URINE SPECIFIC GRAVITY 1.025; UROBILINOGEN,URINE NEGATIVE mg/dL (<2.0)
[2020-06-18] MEDS ORDERED: ONDANSETRON 4 MG TAB.RAPDIS PO ONE (09:24)
--- NOTE | 2020-06-18 09:26 | ER Document Report ---
ED GI/ - General Chief Complaint: Urinary Problem Stated Complaint: PELVIC PAIN,BLOATING Time Seen by Provider: 06/18/20 08:18 Primary Care Provider: [facility] [Provider Group] - Follow up as needed Mode of Arrival: Ambulatory Information source: Patient Notes: Patient presents complaining of urinary frequency with dysuria and lower back pain. Patient states she had some nausea with vaginal discharge as well. Patient denies any concerns about STI or . TRAVEL OUTSIDE OF THE [place] IN LAST 30 DAYS: No - HPI Patient complains to provider of: Vaginal discharge. No: Flank pain, Onset: Other - 4 days Timing/Duration: Persistent Pain Level: 1 Location: Pelvis Menstrual period history: denies: Associated symptoms: Dysuria, Urinary frequency. denies: Fever Exacerbated by: Denies Relieved by: Denies Similar symptoms previously: No Recently seen / treated by doctor: No - Related Data Allergies/Adverse Reactions: No Known Allergies Allergy (Verified 06/18/20 08:06) Past Medical History - General Information source: Patient - Social History Smoking Status: Never Smoker Frequency of alcohol use: None Drug Abuse: None Occupation: [employer] Family History: Reviewed & Not Pertinent Endocrine Medical History: Reports: Hx Diabetes Mellitus Type 2 Renal/ Medical History: Denies: Hx Peritoneal Dialysis GI Medical History: Reports: Hx Irritable Bowel Musculoskeletal Medical History: Reports Hx Musculoskeletal Trauma Traumatic Medical History: Reports: Hx Fractures - Left third finger left tibia Past Surgical History: Reports: Hx Orthopedic Surgery - Left tibia ankle - Immunizations Immunizations up to date: Yes Hx Diphtheria, Pertussis, Tetanus Vaccination: Yes Review of Systems - Review of Systems Constitutional: No symptoms reported. denies: Fever EENT: No symptoms reported Cardiovascular: No symptoms reported Respiratory: No symptoms reported. denies: Cough, Short of breath Gastrointestinal: Abdominal pain, Nausea. denies: Vomiting Genitourinary: Dysuria, Frequency. denies: Flank pain Female Genitourinary: No symptoms reported Musculoskeletal: Back pain Skin: No symptoms reported Hematologic/Lymphatic: No symptoms reported Neurological/Psychological: No symptoms reported Physical Exam - Vital signs Vitals: Temp Pulse Resp BP Pulse Ox 98.2 F 83 20 117/57 L 98 06/18/20 07:51 06/18/20 07:51 06/18/20 07:51 06/18/20 07:51 06/18/20 07:51 - General General appearance: Appears well, Alert In distress: None - HEENT Head: Normocephalic, Atraumatic Eyes: Normal Conjunctiva: Normal Nasal: Normal Mouth/Lips: Normal Neck: Normal, Supple - Respiratory Respiratory status: No respiratory distress Chest status: Nontender Breath sounds: Normal. No: Rales, Rhonchi, Stridor, Wheezing Chest palpation: Normal - Cardiovascular Rhythm: Regular Heart sounds: S1 appreciated, S2 appreciated - Abdominal Inspection: Normal Distension: No distension Bowel sounds: Normal Tenderness: Tender - L side abd tenderness - Genitourinary External exam: Normal Speculum exam: Cervix closed, Vaginal discharge - minimal white Vaginal bleeding: None Bimanuel exam: Normal. No: Cervical motion tender, Adnexal tenderness Notes: RN Alyson Anaya as standby - Back Back: Normal, Nontender. No: CVA tenderness - Extremities General upper extremity: Normal inspection, Normal ROM General lower extremity: Normal inspection, Normal ROM - Neurological Neuro grossly intact: Yes Cognition: Normal Humberto Coma Scale Eye Opening: Spontaneous [place] Coma Scale Verbal: Oriented Humberto Coma Scale Motor: Obeys Commands [place] Coma Scale Total: 15 - Psychological Associated symptoms: Normal affect, Normal mood - Skin Skin Temperature: Warm Skin Moisture: Dry Skin Color: Normal Course - Re-evaluation Re-evalutation: 06/18/20 10:56 Patient reports pain and nausea have resolved at this time. Abdomen soft nontender. Patient with moderate leukocyte esterase noted on urinalysis although patient does have frequency and dysuria symptoms, will place patient on short course of antibiotics. Patient also with vaginal discharge and wet prep positive for bacterial vaginosis. Patient denies any concerns about STI. No concern for pyelonephritis or obstructive uropathy at this time. Good return precautions discussed with patient. - Vital Signs Vital signs: Temp Pulse Resp BP Pulse Ox 98.2 F 54 L 18 107/54 L 100 06/18/20 07:51 06/18/20 11:05 06/18/20 11:05 06/18/20 11:05 06/18/20 11:05 - Laboratory Laboratory results interpreted by me: 06/18/20 08:13 Ur Leukocyte Esterase MODERATE H Discharge - Discharge Clinical Impression: Vaginal bacteriosis, Nausea UTI (urinary tract infection) Qualifiers: Urinary tract infection type: site unspecified Hematuria presence: without hematuria Qualified Code(s): N39.0 - Urinary tract infection, site not specified Condition: Stable Disposition: HOME, SELF-CARE Instructions: Antinausea Medication ([facility]), Cephalexin ([facility]), Metronidazole ([facility]), Nausea or Vomiting, Nonspecific ([facility]), Urinary Tract Infection ([facility]), Vaginosis, Bacterial ([facility]) Additional Instructions: Return immediately for any new or worsening symptoms Followup with your primary care provider, call tomorrow to make a followup appointment Prescriptions: Metronidazole [Flagyl 500 mg Tablet] 500 mg PO BID #14 tablet Cephalexin Monohydrate [Keflex 500 mg Capsule] 500 mg PO BID 5 Days #10 capsule Ondansetron [Zofran Odt 4 mg Tablet] 1 tab PO Q6H #15 tab.rapdis Forms: Return to Work Referrals: [facility] [Provider Group] - Follow up as needed
[2020-06-18 10:14] LABS: BACTERIA (WET MOUNT) 4+ BACTERIA SEEN; EPITHELIALS (WET MOUNT) 4+ EPITHELIALS SEEN; T.VAGINALIS (WET MOUNT) NO TRICHOMONAS SEEN; WBCS (WET MOUNT) RARE WBCS SEEN; YEAST (WET MOUNT) NO YEAST SEEN
[2020-06-18] MEDS ORDERED: METRONIDAZOLE 500 MG TABLET PO ONE (10:51)
[2020-06-18] MEDS ORDERED: CEPHALEXIN 500 MG CAPSULE PO ONE (10:51)
[2020-06-18 11:05] VITALS: BP 107/54
[2020-06-18 11:40] LABS: CHLAM PCR NOT DETECTED (NOT DETECT)
== END 2020-06-18 11:08 | disposition home or self-care (01) ==
LOC: ER 07:47
DX: N39.0 Urinary tract infection, site not specified (principal); N76.0 Acute vaginitis; B96.89 Other specified bacterial agents as the cause of diseases classified elsewhere; E11.9 Type 2 diabetes mellitus without complications; M54.5 Low back pain
CPT/HCPCS: 99284; 87210; 81025; 81001; 87491; 87591; S0119